=== PATIENT | female | born 1975 | race Caucasian/White ===

== ENCOUNTER 2020-11-16 16:44 | Emergency (ER) | payer OTHER ==
[~2020-11-16] VITALS: Ht 167.6 cm; Wt 90.7 kg
[2020-11-16 16:56] VITALS: BP_SYST 193
[2020-11-16] MEDS ORDERED: ONDANSETRON HCL 4 MG/2 ML VIAL ONE (17:24)
[2020-11-16] MEDS ORDERED: ONDANSETRON HCL 4 MG/2 ML VIAL IVP ONE (17:30)
[2020-11-16] MEDS ORDERED: NACL 0.9% 1,000 ML IV ONE (17:30)
[2020-11-16 17:50] LABS: BASOPHILS % (AUTO) 0.2 % (0.0-2.0); EOSINOPHILS # (AUTO) 0.2 K/uL (0.0-0.4); EOSINOPHILS % (AUTO) 1.5 % (0.0-4.0); HEMATOCRIT 43.4 % (36-48); LYMPHOCYTES # (AUTO) 1.4 K/uL (1.0-5.5); LYMPHOCYTES % (AUTO) 10.1 % (20.5-51.5); MEAN CORPUSCULAR HEMOGLOBIN 29 pg (27-31); MEAN CORPUSCULAR HGB CONC 32 % (32-36); MEAN CORPUSCULAR VOLUME 91 fL (79.0-98.0); MONOCYTES # (AUTO) 0.8 K/uL (0.0-1.0); MONOCYTES % (AUTO) 5.9 % (1.7-9.3); NEUTROPHILS # (AUTO) 11.7 K/uL (1.8-7.7); NEUTROPHILS % (AUTO) 82.3 % (40.0-70.0); PLATELET COUNT (AUTO) 214 K/uL (130-430); RED BLOOD CELL COUNT(AUTO) 4.76 MIL/uL (4.2-6.2); RED CELL DISTRIBUTION WIDTH 14.2 % (9.0-15.0); WHITE BLOOD COUNT (AUTO) 14.3 K/uL (4.8-10.8)
[2020-11-16 18:00] LABS: ANION GAP 8 (5-15); CALCIUM 8.6 mg/dL (8.4-11.0); CHLORIDE 105 mmol/L (98-107); CREATININE 0.82 mg/dL (0.55-1.30); GLUCOSE 162 mg/dL (70-99); POTASSIUM 3.8 mmol/L (3.5-5.1); SODIUM SERUM 141 mmol/L (136-145); UREA NITROGEN, BLOOD 9 mg/dL (8-21)
[2020-11-16 18:03] LABS: GFR AFRICAN AMERICAN 96 mL/min (>90)
[2020-11-16 18:05] LABS: INR 0.9 (0.8-1.2); PROTHROMBIN TIME 9.4 SECS (9.5-12.5)
[2020-11-16 18:06] LABS: ALANINE AMINOTRANSFERASE 105 U/L (12-78); ALBUMIN 3.5 g/dL (3.4-4.8); AMYLASE 36 U/L (0-100); ASPARTATE AMINOTRANSFERASE 51 U/L (10-37); LACTATE DEHYDROGENASE 162 U/L (81-234); LIPASE 69 U/L (73-393); TOTAL BILIRUBIN 0.2 mg/dL (0.0-1.0)
[2020-11-16 18:10] LABS: ACETONE, SERUM NEGATIVE (NEGATIVE)
[2020-11-16] MEDS ORDERED: HYDR-4272 PO ×2 (18:50→19:12)
[2020-11-16] MEDS ORDERED: ONDA4TAB5 PO ×2 (18:50→19:12)
[2020-11-16] MEDS ORDERED: IBUP-1969 PO ×2 (18:50→19:12)
[2020-11-16 19:15] VITALS: BP_SYST 140
[2020-11-16 19:21] LABS: BILIRUBIN,URINE NEGATIVE (NEGATIVE); BLOOD, URINE NEGATIVE (NEGATIVE); CLARITY/URINE CLEAR (CLEAR); COLOR,URINE YELLOW (YELLOW); GLUCOSE,URINE NEGATIVE (NEGATIVE); KETONES,URINE TRACE (NEGATIVE); LEUKOCYTE ESTERASE ,URINE NEGATIVE (NEGATIVE); NITRITE, URINE NEGATIVE (NEGATIVE); PROTEIN URINE NEGATIVE (NEGATIVE); UROBILINOGEN,URINE 0.2 (0.2-1.0)
== END 2020-11-16 19:15 | disposition home or self-care (01) ==
LOC: SED 16:44
DX: R10.84 Generalized abdominal pain (principal); R11.0 Nausea
CPT/HCPCS: 36415; 71045; 74176; 76376; 80053; 81003; 81025; 82009; 82150; 83605; 83615; 83690; 84703; 85025; 85610; 85730; 96374; 99285; J2405; J7030